=== PATIENT | female | born 1980 | race Caucasian/White ===

== ENCOUNTER 2018-08-05 01:56 | Outpatient (CLI) | payer OTHER ==
[2018-08-05] MEDS: LACTATED RINGER'S 1,000 ML IV ×2 (02:54→05:02)
[2018-08-05] MEDS: FAMOTIDINE 20 MG INJ IV (03:12)
[2018-08-05 03:14] LABS: ADD UMIC NO; UR ASCORBIC ACID NEGATIVE (NEGATIVE); UR BILIRUBIN (Dip) NEGATIVE (NEGATIVE); UR BLOOD (Dip) NEGATIVE (NEGATIVE); UR CLARITY CLEAR (CLEAR); UR COLOR STRAW (YELLOW); UR GLUCOSE (Dip) NEGATIVE (NEGATIVE); UR KETONES (Dip) NEGATIVE (NEGATIVE); UR LEUKOCYTE ESTERASE (Dip) NEGATIVE Leu/ul (NEGATIVE); UR NITRITE (Dip) NEGATIVE (NEGATIVE); UR SPECIFIC GRAVITY (Dip) 1.003 (1.003-1.030); UR TOTAL PROTEIN (Dip) NEGATIVE (NEGATIVE); UR UROBILINOGEN (Dip) NEGATIVE (NEGATIVE)
[2018-08-05 03:29] LABS: ALANINE AMINOTRANSFERASE 18 IU/L (13-69); ALBUMIN 3.7 g/dl (3.3-4.9); ALBUMIN/GLOBULIN RATIO 1.08; ALKALINE PHOSPHATASE 103 IU/L (42-121); ANION GAP 8 (5-13); ASPARTATE AMINO TRANSFERASE 22 IU/L (15-46); BILIRUBIN,INDIRECT 0.2 mg/dl (0-1.1); BILIRUBIN,TOTAL 0.2 mg/dl (0.2-1.3); BLOOD UREA NITROGEN 6 mg/dl (7-20); CALCIUM 9.4 mg/dl (8.4-10.2); CARBON DIOXIDE 21 mmol/L (21-31); CHLORIDE 111 mmol/L (97-110); CREATININE 0.63 mg/dl (0.44-1.00); Estimated GFR > 60 mL/min (>60); GLUCOSE 87 mg/dl (70-220); POTASSIUM 3.9 mmol/L (3.5-5.1); SODIUM 140 mmol/L (135-144); TOTAL PROTEIN 7.1 g/dl (6.1-8.1)
[2018-08-05] MEDS: TERBUTALINE 1 MG/ML INJ SC ×2 (04:11→05:11)
[2018-08-05] MEDS: ONDANSETRON 4 MG INJ IV (04:52)
[2018-08-05] MEDS: LORAZEPAM 2 MG INJ IV (06:18)
[2018-08-05] MEDS: PANTOPRAZOLE 40 MG INJ IV (07:23)
== END 2018-08-05 08:45 | disposition home or self-care (01) ==
LOC: OBT 01:56 → L-D 01:56 → OBT 08:45
DX: O62.9 Abnormality of forces of labor, unspecified (principal); Z3A.33 33 weeks gestation of pregnancy
CPT/HCPCS: 36415; 76817; 76818; 80053; 81003; 96360; 96361; 96372; 96376

== ENCOUNTER 2018-08-05 08:50 | Emergency (ER) | payer OTHER | END 2018-08-05 11:17 | disposition home or self-care (01) | LOC: E/R 08:50 | DX: O21.2 Late vomiting of pregnancy (principal); O99.513 Diseases of the respiratory system complicating pregnancy, third trimester; J45.909 Unspecified asthma, uncomplicated; Z3A.36 36 weeks gestation of pregnancy | CPT/HCPCS: 99283; Z7502 ==